=== PATIENT | female | born 1955 | race Caucasian/White ===

== ENCOUNTER 2017-10-08 10:57 | Emergency (ER) | payer OTHER ==
[~2017-10-08] VITALS: Ht 157.5 cm; Wt 53.1 kg
[2017-10-08 11:01] VITALS: BP 134/78
--- NOTE | 2017-10-08 11:08 | NUR ---
PT AMBULATED TO ER BED 02
--- NOTE | 2017-10-08 11:10 | NUR ---
62/F BIB SELF C/O HEADACHE x LAST NIGHT @ 1800. PT STATES PAIN MAINLY AT RT SIDE OF HER HEAD. PT DENIES INJURY OR TRAUMA. HX: DM, HTN. DENIES N/V/D; SKIN IS PINK/WARM/DRY; AAOX4 WITH EVEN AND STEADY GAIT; LUNGS CLEAR BL; PT DENIES ANY FEVER, CP, SOB, OR COUGH AT THIS TIME; PATIENT STATES PAIN OF 8/10 AT THIS TIME; PATIENT POSITIONED FOR COMFORT; HOB ELEVATED; BEDRAILS UP X2; BED DOWN. ER MD MADE AWARE OF PT STATUS.
--- NOTE | 2017-10-08 11:17 | NUR ---
Patient being evaluated by DR MACKEY at bedside.
[2017-10-08] MEDS ORDERED: LIDOCAINE 2% 1000 MG/50 ML VIAL INJ ONE (11:25)
--- NOTE | 2017-10-08 11:31 | NUR ---
PT TAKEN TO CT VIA GUSUNITA, ACCOMPANIED BY CHEMIST ENZYMES.
[2017-10-08 12:13] LABS: BASOPHILS % (AUTO) 0.8 % (0.0-2.0); EOSINOPHILS # (AUTO) 0.2 K/uL (0-0.4); EOSINOPHILS % (AUTO) 2.7 % (0.0-4.0); HEMATOCRIT 38.9 % (36-48); HEMOGLOBIN 12.8 g/dL (12.0-16.0); LYMPHOCYTES # (AUTO) 1.8 K/uL (2.5-16.5); MEAN CORPUSCULAR HEMOGLOBIN 30 pg (27-31); MEAN CORPUSCULAR HGB CONC 33 g/dL (33-37); MEAN CORPUSCULAR VOLUME 89.6 fL (80-94); MONOCYTES # (AUTO) 0.5 K/uL (0.8-1.0); MONOCYTES % (AUTO) 8.3 % (1.7-9.3); NEUTROPHILS # (AUTO) 3.6 K/uL (1.8-7.7); NEUTROPHILS % (AUTO) 58.2 % (42.2-75.2); PLATELET COUNT (AUTO) 265 K/uL (140-450); RED BLOOD CELL COUNT(AUTO) 4.34 MIL/uL (4.20-5.40); RED CELL DISTRIBUTION WIDTH 14.4 % (11.6-13.7); WHITE BLOOD COUNT (AUTO) 6.1 K/uL (4.8-10.8)
[2017-10-08 12:25] LABS: ALBUMIN 3.2 g/dL (3.4-5.0); ANION GAP 10.1 (8-16); CARBON DIOXIDE 28.4 mmol/L (21-32); CREATININE 0.6 mg/dL (0.6-1.3); POTASSIUM 3.5 mmol/L (3.5-5.1); TOTAL BILIRUBIN 0.4 mg/dL (0.0-1.0)
[2017-10-08 12:27] LABS: PROTHROMBIN TIME 9.5 secs (10.8-13.4)
[2017-10-08 13:43] VITALS: BP 133/76
== END 2017-10-08 13:43 | disposition home or self-care (01) ==
LOC: MED 10:57
DX: M54.81 Occipital neuralgia (principal); E11.9 Type 2 diabetes mellitus without complications; Z90.89 Acquired absence of other organs; Z90.49 Acquired absence of other specified parts of digestive tract
CPT/HCPCS: 20552; 36415; 70450; 80053; 81002; 82948; 84484; 85025; 85610; 85651; 85730; 93005; 99285; J2001

== ENCOUNTER 2018-07-10 18:23 | Emergency (ER) | payer OTHER ==
[~2018-07-10] VITALS: Ht 157.5 cm; Wt 57.4 kg
[2018-07-10 18:27] VITALS: BP 152/69
--- NOTE | 2018-07-10 18:31 | NUR ---
TO ED 11 WITH STEADY GAIT
--- NOTE | 2018-07-10 18:49 | NUR ---
PT COMPLAINTS URINARY RETENTION AND DYSURIA FOR 6 HOURS. ENIES N/V/D; AAOX4 WITH EVEN AND STEADY GAIT; HR EVEN AND REGULAR; PT DENIES ANY FEVER, CP, SOB, OR COUGH AT THIS TIME; PATIENT STATES UPPER PUBIC PAIN OF 10/10 AT THIS TIME; VSS; PATIENT POSITIONED FOR COMFORT. ER MD MADE AWARE OF PT STATUS.
--- NOTE | 2018-07-10 19:17 | NUR ---
RECEIVED REPORT FROM HARJEET AKERS.
--- NOTE | 2018-07-10 19:40 | NUR ---
#14 FR Urinary catheter inserted utilizing sterile technique. Delayed return of 700 ml of cloudy yellow urine noted. Abdominal distention decreased following procedure. Urine sample collected and sent to lab. Pt tolerated procedure well.
[2018-07-10 20:00] LABS: APPEARANCE,URINE CLEAR (CLEAR); BILIRUBIN,URINE NEGATIVE (NEGATIVE); BLOOD, URINE 3+ (NEGATIVE); COLOR,URINE YELLOW (YELLOW); LEUKOCYTE ESTERASE ,URINE NEGATIVE (NEGATIVE); NITRITE, URINE NEGATIVE (NEGATIVE); UGLUCOSE NEGATIVE (NEGATIVE)
[2018-07-10 20:07] LABS: RBC,URINE TOO NUMEROUS TO COUN /HPF (0-5); WBC,URINE 0-5 /HPF (0-5)
--- NOTE | 2018-07-10 20:32 | NUR ---
PT TAKEN TO CT AT THIS TIME
--- NOTE | 2018-07-10 20:40 | NUR ---
PT RETURNED FROM CT VIA WHEELCHAIR
--- NOTE | 2018-07-10 20:40 | NUR ---
PT RETURNED FROM CT.
[2018-07-10 22:28] VITALS: BP 152/77
== END 2018-07-10 22:27 | disposition home or self-care (01) ==
LOC: MED 18:23
DX: N20.0 Calculus of kidney (principal); R33.9 Retention of urine, unspecified; E11.9 Type 2 diabetes mellitus without complications; I10 Essential (primary) hypertension
CPT/HCPCS: 74176; 81001; 87086; 99284; C1758